=== PATIENT | male | born 1945 | race Caucasian/White ===

== ENCOUNTER 2023-06-21 05:04 | Emergency (ER) | payer OTHER ==
[2023-06-21 05:32] LABS: #Lymphocytes 0.6 thou/uL (1.20-3.40); #Monocytes 0.5 thou/uL (0.11-0.59); #Neutrophils 3.9 thou/uL (1.40-6.50); %Basophils 0.8 % (0.0-1.0); %Eosinophils 0.3 % (0.0-10.0); %Lymphocytes 12.6 % (21.0-51.0); %Neutrophils 77.3 % (42.0-75.0); Hematocrit 19.1 % (42.0-52.0); Mean Corpuscular HGB CONC 30.1 g/dL (32.0-36.0); Mean Corpuscular Volume 86.3 fl (78.0-98.0); Mean Platelet Volume 7.6 fL (7.4-10.4); Platelet Count 271 10x3/uL (130-400); RBC Distribution Width 21.6 % (11.5-14.5); Red Blood Cell (RBC) Count 2.21 mill/uL (4.70-6.10); White Blood Cell (WBC) Count 5.1 10x3/uL (4.8-10.8)
[2023-06-21 05:37] LABS: Hemoglobin 5.8 g/dL (14.0-18.0)
[2023-06-21 05:46] LABS: ALT (SGPT) 32 U/L (8-55); AST (SGOT) 30 U/L (5-34); Albumin 3.1 g/dL (3.4-4.8); Alkaline Phosphatase 80 U/L (40-110); Anion Gap 10 mmol/L (10-20); BUN (Urea Nitrogen) 42 mg/dL (8.4-25.7); Bilirubin, Total 0.3 mg/dL (0.2-1.2); Calc. Creatinine Clearance 0 mL/min (70-130); Calcium 7.6 mg/dL (7.8-10.44); Carbon Dioxide 25 mmol/L (23-31); Chloride 106 mmol/L (98-107); Estimated GFR 38; Glucose 110 mg/dL (83-110); Protein, Total 5.1 g/dL (5.8-8.1); Sodium 137 mmol/L (136-145)
[2023-06-21 06:27] LABS: INR-International Normal Ratio 1.8; PTT 31.2 sec (22.9-36.1); Prothrombin Time 21.2 sec (12.0-14.7)
[2023-06-21] MEDS ORDERED: Pantoprazole 40 MG VIAL ONE (07:06)
[2023-06-21] MEDS ORDERED: Calcium Gluc 4.6 MEQ/10 ML (100 MG/ML) ONE (07:06)
[2023-06-21] MEDS ORDERED: Sodium Chloride 0.9% 100 ML ONE (07:11)
[2023-06-21 09:19] LABS: Hemoglobin 6.3 g/dL (14.0-18.0)
[2023-06-21 09:53] LABS: Hematocrit 20.4 % (42.0-52.0)
== END 2023-06-21 13:33 | disposition short-term general hospital (02) ==
LOC: NAV ERS 05:04
DX: D45 Polycythemia vera (principal); D64.9 Anemia, unspecified; I95.9 Hypotension, unspecified; I12.9 Hypertensive chronic kidney disease with stage 1 through stage 4 chronic kidney disease, or unspecified chronic kidney disease; N18.9 Chronic kidney disease, unspecified; I48.91 Unspecified atrial fibrillation; I25.10 Atherosclerotic heart disease of native coronary artery without angina pectoris; E78.5 Hyperlipidemia, unspecified; I73.9 Peripheral vascular disease, unspecified; Z79.01 Long term (current) use of anticoagulants; Z79.82 Long term (current) use of aspirin; Z79.899 Other long term (current) drug therapy; Z55.6 Problems related to health literacy; Z89.412 Acquired absence of left great toe
CPT/HCPCS: 36430; 80053; 83735; 83880; 85025; 85610; 85730; 86850; 86900; 86901; 93005; 96365; 96375; C9113; J0612; P9016